=== PATIENT | female | born 1950 | race Caucasian/White ===

== ENCOUNTER 2021-05-15 08:35 | Outpatient (CLI) | payer MEDICARE, BC, SELFPAY ==
--- NOTE | 2021-05-15 08:47 | EST_ITS ---
Patient Info Name: Sheree Hernandez Age: 70 years : 1950 Gender: Female Ht: 65 in Wt: 165 lbs BSA: 1.87 m2 HR: 68 bpm BP: 148 / 72 mmHg Heart Rhythm: Sinus Arrhythmia Technical Quality: Fair Exam Date: 05/15/2021 9:06 AM Exam Location: [facility] Pulmonary Patient Status: Preadmit Admit Date: 05/15/2021 Staff Ordering Physician: Davonte Rodriguez MD [employer] Specialist: Irma Fuentes RDCS Attending Provider: DR. GARCIA Referring Physician: Michael GRANDE; Exam Type: CA stress echo Study Info Indications - chest pain Treadmill exercise stress echocardiogram is performed. Summary 1. 1. Abnormal Max exercise stress test for ischemic ST changes by ECG criteria during recovery phase. 2. 2. Good functional capacity, achieving 7 METs of workload. 3. 3. Baseline hypertension with hypertensive response to exercise. 4. 4. Appropriate HR response to exercise. 5. 5. Appropriate HR recovery at 1 minute post exercise. 6. 6. Negative stress echocardiogram for ischemia by wall motion analysis. 7. 7. Patient informed of the above results. Stress Echo Findings Left Ventricle Appropriate increase in LV endocardial thickening with systole. Appropriate augmentation of contractility with systole. No wall motion abnormality. Left Ventricle Normal LV systolic function, no wall motion abnormality. Protocol: Max Stress ECG Details Stage: REST Duration (min): 1 min : 15 sec Speed (mph): 0.0 Grade (%): 0 HR (bpm): 69 SBP (mmHg): 148 DBP (mmHg): 72 METS: --- Stage: REST Duration (min): 21 min : 56 sec Speed (mph): 0.0 Grade (%): 0 HR (bpm): 71 SBP (mmHg): 148 DBP (mmHg): 72 METS: --- Stage: STAGE 1 Duration (min): 1 min : 0 sec Speed (mph): 1.7 Grade (%): 10 HR (bpm): 86 SBP (mmHg): 148 DBP (mmHg): 72 METS: --- Stage: STAGE 1 Duration (min): 2 min : 0 sec Speed (mph): 1.7 Grade (%): 10 HR (bpm): 97 SBP (mmHg): 148 DBP (mmHg): 72 METS: --- Stage: STAGE 1 Duration (min): 3 min : 0 sec Speed (mph): 1.7 Grade (%): 10 HR (bpm): 104 SBP (mmHg): 141 DBP (mmHg): 58 METS: --- Stage: STAGE 2 Duration (min): 1 min : 0 sec Speed (mph): 2.5 Grade (%): 12 HR (bpm): 113 SBP (mmHg): 141 DBP (mmHg): 58 METS: --- Stage: STAGE 2 Duration (min): 2 min : 0 sec Speed (mph): 2.5 Grade (%): 12 HR (bpm): 125 SBP (mmHg): 187 DBP (mmHg): 64 METS: --- Stage: STAGE 2 Duration (min): 3 min : 0 sec Speed (mph): 2.5 Grade (%): 12 HR (bpm): 130 SBP (mmHg): 187 DBP (mmHg): 64 METS: --- Stage: STAGE 3 Duration (min): 0 min : 2 sec Speed (mph): 0.0 Grade (%): 0 HR (bpm): 130 SBP (mmHg): 187 DBP (mmHg): 64 METS: --- Stage: RECOVERY Duration (min): 0 min : 57 sec Speed (mph): 0.0 Grade (%): 0 HR (bpm): 111 SBP (mmHg): 183 DBP (mmHg): 58 METS: --- Stage:
== END 2021-05-15 08:36 | disposition home or self-care (01) ==
LOC: ANHCARD 11:26
PROVIDERS: PCP Family Medicine; Visit Provider Family Medicine
DX: R07.89 Other chest pain (principal)
CPT/HCPCS: 93351

== ENCOUNTER 2021-10-28 18:42 | Emergency (ER) | payer MEDICARE, BC, SELFPAY ==
[2021-10-28 19:31] VITALS: BP 121/83; PULSE 82; RESP 18; TEMP 36.2; O2SAT 99
--- NOTE | 2021-10-28 19:35 | ED.URI ---
HPI - URI/Sore Throat General Chief Complaint: Upper Respiratory Infection Stated Complaint: sorethroat Time Seen by Provider: 10/28/21 19:35 Source: patient and RN notes reviewed Mode of arrival: ambulatory Limitations: no limitations History of Present Illness HPI Narrative: 71-year-old female presents to the [facility] with complaints of a sore throat for 3 days. Has had increased fatigue as well. Denies fevers, chest pain, abdominal pain. Reports that she has had her grandson tested positive for strep. Fatigue that is gotten a little bit worse over the last 3 days since having her COVID-vaccine booster in June 2021 Related Data Allergies Allergy/AdvReac Type Severity Reaction Status Date / Time pseudoephedrine Allergy Mild Unknown Verified 09/15/21 12:05 albuterol Allergy Unknown adverse Verified 09/15/21 12:05 reaction celecoxib Allergy Unknown swelling Verified 09/15/21 12:05 of feet erythromycin base Allergy Unknown GI problems Verified 09/15/21 12:05 SHELLFISH Allergy Unknown Unknown Uncoded 09/15/21 12:05 SYMPATHOMIMETIC AGENTS Allergy Unknown Unknown Uncoded 09/15/21 12:05 Review of Systems Review of Systems: All systems reviewed & are unremarkable except as noted in HPI and below Constitutional: Constitutional: Reports no additional constitutional complaints, Denies chills and Denies fever(s) Eyes: Eyes: Reports no additional eye complaints ENT: Reports as per HPI and Reports sore throat Cardiovascular: Cardiovascular: Reports no additional cardiovascular complaints Respiratory: Respiratory: Reports no additional respiratory complaints Gastrointestinal: Gastrointestinal: Reports no additional gastrointestinal complaints Musculoskeletal: Musculoskeletal: Reports no additional musculoskeletal complaints Integumentary/Breasts: Skin/Breast: Reports system reviewed and no additional complaints, except as docu Neurologic: Reports system reviewed and no additional complaints, except as documented Psychiatric: Psychiatric: Reports no additional psychiatric complaints Allergic/Immunologic: Allergic/Immunologic: Reports no additional allergic/immunologic complaints [facility] Past Medical History Medical History Cataract (~2010) dBilateral Prediabetes Stroke (~2002) Surgical History Surgical History H/O lumbar discectomy (~2014) History of cervical discectomy (~1997) Family History Family History Father Family history of lymphoma Hypertension Family history of elevated blood lipids, Onset Age: 71 Family history of cardiovascular disease, Onset Age: 71 Mother Family history of malignant neoplasm of breast in first degree relative, Onset Age: 48 Hypertension, Onset Age: 51 Sibling Family history of malignant neoplasm of breast in first degree relative Diabetes mellitus Grandparent Cerebrovascular accident Other Family history of malignant neoplasm of breast Social History Social History Smoking status: Never smoker Alcohol intake: never Comments At the time of my signature, I reviewed and agree with the nursing past medical, surgical, social, and family history. There is no relevant family history pertinent to the patient complaint. Exam Const: General: healthy appearing, no acute distress and alert Nutritional Appearance: well nourished Orientation/consciousness: patient oriented x3 Limitations: no limitations HENMT: Head: normal to inspection Ears: external ears normal General nose exam: Normal external nose present Mouth: Yes Normal oral and palatal mucosa present Throat: posterior oropharynx normal, tonsils normal and uvula midline Eyes: General: appearance normal, both eyes and all related structures Pupils: Equal, round and reactiv
== END 2021-10-28 20:14 | disposition home or self-care (01) ==
PROVIDERS: Emergency Provider Nurse Practitioner; PCP Family Medicine
DX: J06.9 Acute upper respiratory infection, unspecified (principal); Z20.822 Contact with and (suspected) exposure to COVID-19; R73.03 Prediabetes; Z86.73 Personal history of transient ischemic attack (TIA), and cerebral infarction without residual deficits
CPT/HCPCS: 87081; 87426; 87880; 99213; C9803; G0463

== ENCOUNTER 2022-01-14 14:55 | Outpatient (NON) | payer MEDICARE, BC, SELFPAY ==
[2022-01-14 15:22] LABS: IFOB Positive Control Positive; Immunochemical Fecal Occult Bl Negative (N)
== END 2022-01-14 14:56 | disposition home or self-care (01) ==
LOC: ANHLAB 15:00
PROVIDERS: PCP Family Medicine; Visit Provider Family Medicine
DX: D50.9 Iron deficiency anemia, unspecified (principal)
CPT/HCPCS: 82274

== ENCOUNTER 2022-01-21 08:08 | Emergency (ER) | payer MEDICARE, BC, SELFPAY ==
[2022-01-21 08:16] VITALS: BP 133/78; PULSE 72; RESP 16; TEMP 36.6; O2SAT 98
--- NOTE | 2022-01-21 08:19 | ED.FEMALEGU ---
HPI - Female Genitourinary General Chief complaint: Urogenital-Female Stated complaint: UTI SYMPTOMS Time Seen by Provider: 01/21/22 08:15 Source: patient, RN notes reviewed and old records reviewed Mode of arrival: ambulatory Limitations: no limitations History of Present Illness HPI Narrative: 71-year-old female presents to the [facility] with 4 days of burning with urination urgency and frequency. Reports incontinence with coughing. Reports pressure suprapubic area. Denies any new back pain. Denies fevers. Related Data Home Medications Medication Instructions Recorded Confirmed ferrous sulfate 325 mg (65 mg 325 mg PO DAILY 01/12/22 01/21/22 iron) tablet Allergies Allergy/AdvReac Type Severity Reaction Status Date / Time pseudoephedrine Allergy Mild Unknown Verified 01/21/22 08:16 albuterol Allergy Unknown adverse Verified 01/21/22 08:16 reaction celecoxib Allergy Unknown swelling Verified 01/21/22 08:16 of feet erythromycin base Allergy Unknown GI problems Verified 01/19/22 14:41 SHELLFISH Allergy Unknown Unknown Uncoded 01/19/22 14:41 SYMPATHOMIMETIC AGENTS Allergy Unknown Unknown Uncoded 01/19/22 14:41 Review of Systems Review of Systems: All systems reviewed & are unremarkable except as noted in HPI and below Constitutional: Constitutional: Reports no additional constitutional complaints, Denies chills and Denies fatigue Eyes: Eyes: Reports no additional eye complaints ENT: Reports system reviewed and no additional complaints, except as documented Cardiovascular: Cardiovascular: Reports no additional cardiovascular complaints Respiratory: Respiratory: Reports no additional respiratory complaints Gastrointestinal: Gastrointestinal: Reports no additional gastrointestinal complaints, Denies abdominal pain, Denies diarrhea, Denies nausea and Denies vomiting Genitourinary: Genitourinary: Reports as per HPI, Reports hematuria, Reports nocturia, Reports dysuria, Denies flank pain and Denies vaginal discharge Musculoskeletal: Musculoskeletal: Reports no additional musculoskeletal complaints and Denies back pain Integumentary/Breasts: Skin/Breast: Reports system reviewed and no additional complaints, except as docu Neurologic: Reports system reviewed and no additional complaints, except as documented Psychiatric: Psychiatric: Reports no additional psychiatric complaints Endocrine: Endocrine: Denies fatigue Allergic/Immunologic: Allergic/Immunologic: Reports no additional allergic/immunologic complaints PMFSH Past Medical History Medical History Cataract (~2010) dBilateral Prediabetes Stroke (~2002) Surgical History Surgical History H/O lumbar discectomy (~2014) History of cervical discectomy (~1997) Family History Family History Father Family history of lymphoma Hypertension Family history of elevated blood lipids, Onset Age: 71 Family history of cardiovascular disease, Onset Age: 71 Mother Family history of malignant neoplasm of breast in first degree relative, Onset Age: 48 Hypertension, Onset Age: 51 Sibling Family history of malignant neoplasm of breast in first degree relative Diabetes mellitus Grandparent Cerebrovascular accident Other Family history of malignant neoplasm of breast Social History Social History Smoking status: Never smoker Substance use type: does not use Additional living arrangements comments: with sp Comments At the time of my signature, I reviewed and agree with the nursing past medical, surgical, social, and family history. There is no relevant family history pertinent to the patient complaint. Exam Const: General: healthy appearing, no acute distress and alert Nutritional Appearance: well bertin
== END 2022-01-21 08:52 | disposition home or self-care (01) ==
PROVIDERS: Emergency Provider Nurse Practitioner; PCP Family Medicine
DX: N39.0 Urinary tract infection, site not specified (principal); R73.03 Prediabetes; H26.9 Unspecified cataract; Z86.73 Personal history of transient ischemic attack (TIA), and cerebral infarction without residual deficits
CPT/HCPCS: 81003; 87077; 87086; 87186; 99213; G0463

== ENCOUNTER 2022-01-26 09:39 | Outpatient (CLI) | payer MEDICARE, BC, SELFPAY ==
--- NOTE | 2022-01-26 09:53 | ECHO_ITS ---
Patient Info Name: Sheree Hernandez Age: 71 years : 1950 Gender: Female Ht: 65 in Wt: 162 lbs BSA: 1.85 m2 HR: 65 bpm BP: 91 / 52 mmHg Technical Quality: Good Exam Date: 01/26/2022 10:27 AM Exam Location: [facility] Pul[facility] Patient Status: Outpatient Admit Date: 01/26/2022 Staff Ordering Physician: Patricia Sandoval MD Ems Instructor: Brendan Barr RDCS Attending Provider: Patricia Sandoval MD Referring Physician: Jaime ELY; Exam Type: CA echo doppler color flow Study Info Indications I10 - Essential (primary) hypertension Complete two-dimensional, color flow and Doppler transthoracic echocardiogram is performed. Summary 1. Complete two-dimensional, color flow and Doppler transthoracic echocardiogram is performed. 2. Left ventricular chamber dimension is normal. 3. Left ventricular systolic function is normal, estimated at 60-65%. 4. The left ventricular diastolic function is grade I diastolic dysfunction. 5. E/e' 8 is minimally elevated. 6. There is mild aortic valve sclerosis. 7. There is mild to moderate aortic valve regurgitation. Left Ventricle E/e' 8 is minimally elevated. Left ventricular chamber dimension is normal. Left ventricular systolic function is normal, estimated at 60-65%. The left ventricular diastolic function is grade I diastolic dysfunction. Right Ventricle Right ventricular systolic function is normal and with normal TAPSE 2.1 cm. Right ventricular chamber dimension is normal. Left Atria Left atrial chamber dimension is normal. Right Atria Right atrial chamber dimension is normal. Aortic Valve The aortic valve is trileaflet. There is mild aortic valve sclerosis. There is no aortic valve stenosis. There is mild to moderate aortic valve regurgitation. Pulmonic Valve There is no pulmonic regurgitation. Mitral Valve There is no mitral valve stenosis. There is no mitral valve regurgitation. Tricuspid Valve There is no tricuspid valve regurgitation. Pericardium/Pleural There is no pericardial effusion. Inferior Vena Cava Normal inferior vena cava with >50% collapse upon inspiration consistent with normal right atrial pressure, 5 mmHg. Aorta The aortic root size at the sinus of Valsalva is normal. Left Ventricular Outflow Tract Name Value Normal LVOT 2D LVOT Diameter 2.0 cm LVOT Doppler LVOT Peak Gradient 6 mmHg LVOT Mean Gradient 4 mmHg LVOT VTI 26 cm LVOT VTI/AV VTI Ratio 1.0 LVOT Stroke Volume 80 ml LVOT CO 5.3 l/min LVOT CI 2.9 l/min/m2 Mitral Valve Name Value Normal MV Doppler MV Decel Crockett 450 cm/s2 MV PHT
== END 2022-01-26 09:40 | disposition home or self-care (01) ==
LOC: ANHCARD 09:41
PROVIDERS: PCP Family Medicine; Visit Provider Family Medicine
DX: I10 Essential (primary) hypertension (principal); D64.9 Anemia, unspecified; I35.1 Nonrheumatic aortic (valve) insufficiency
CPT/HCPCS: 93306

== ENCOUNTER 2022-02-09 11:56 | Outpatient (CLI) | payer MEDICARE, BC, SELFPAY ==
--- NOTE | ~2022-02-09 | XR_ITS ---
EXAMINATION: XR chest 2V Exam Date/Time: 02/09/2022 12:06 CDT HISTORY: R05.9 - Cough, unspecified SINCE HAVING COVID 11/2021 Comparison: 06/22/2016. RESULT: Lines, tubes, and devices: None. Lungs and pleura: Clear. Cardiomediastinal silhouette: Stable. Other: No acute osseous or upper abdominal finding. IMPRESSION: No acute cardiopulmonary process. Reviewed, dictated and finalized at location K.
== END 2022-02-09 11:57 | disposition home or self-care (01) ==
PROVIDERS: PCP Family Medicine; Visit Provider Physician Assistant
DX: R05.9 Cough, unspecified (principal)
CPT/HCPCS: 71046

== ENCOUNTER 2022-03-11 00:45 | Day surgery (SDC) | payer MEDICARE, BC, SELFPAY ==
[2022-01-19 14:45] VITALS: BMI 26.7
[2022-03-11 11:20] VITALS: BP 169/65; PULSE 75; RESP 18; TEMP 36.4; O2SAT 96; BMI 27.1
--- NOTE | 2022-03-11 11:32 | PM.HPGS ---
History of Present Illness History of Present Illness Consent: Risks, benefits, and alternatives have been discussed and questions answered. Patient agrees to proceed with procedure. Chief complaint: dysphagia; SHAKIRA Narrative: Sheree Hernandez is a 71 year old female Presents for colonoscopy and EGD. Patient recently found to have anemia with iron deficient indices. She was placed on iron replacement has improved hemoglobin. She denies any obvious signs of bleeding. Her bowel movements are normal. She has no nose bleeds, no bruises or bleeding elsewhere. She denies abdominal pain. Patient does note that when swallowing food she occasionally chokes or will cough. An EGD is requested for this reason. Old records revealed that patient had a small AVM of the colon when previous colonoscopy was performed 2013. Patient presents today for both colonoscopy and EGD. Family history is noncontributory. Review of Systems Review of Systems: Review of systems noncontributory. [facility] Past Medical History Medical History Cataract (~2010) dBilateral Diabetes mellitus Essential (primary) hypertension Major depressive disorder, recurrent, moderate Mixed hyperlipidemia Nonrheumatic aortic (valve) insufficiency echo 10.4.22: mild aortic valve sclerosis, mild to moderate aortic valve regurgitation. Stroke (~2002) Surgical History Surgical History H/O lumbar discectomy (~2014) History of cervical discectomy (~1997) Family History Family History Father Family history of lymphoma Hypertension Family history of elevated blood lipids, Onset Age: 71 Family history of cardiovascular disease, Onset Age: 71 Mother Family history of malignant neoplasm of breast in first degree relative, Onset Age: 48 Hypertension, Onset Age: 51 Sibling Family history of malignant neoplasm of breast in first degree relative Diabetes mellitus Grandparent Cerebrovascular accident Other Family history of malignant neoplasm of breast Social History Social History Smoking status: Never smoker Alcohol intake: never Substance use: never Substance use type: does not use Lack of Transportation: No Lack of Food: Never True Current Housing: I Have Housing Concerned About Future Housing: No Difficulty Paying Gas/Electric Bills: No Difficulty Paying for Meds: No Currently Unemployed: No Education: Associate Degree Difficulty w/ Childcare or Family Care: No Living arrangements: other Additional living arrangements comments: Gender identity (if verbalized by the patient): Female Sexual Orientation (if Verbalized by the Patient): Straight or Heterosexual Agree to blood products: Yes Meds Home Medications and Allergies Home Medications Medication Instructions Recorded Confirmed Type cyclobenzaprine 10 mg tablet 10 mg PO .QHS PRN muscle spasm #60 01/15/20 03/11/22 Rx tabs hydrochlorothiazide 12.5 mg tablet 25 mg PO DAILY #180 tabs 11/10/21 03/11/22 Rx alprazolam 0.5 mg tablet (Xanax) 0.5 mg PO TID PRN anxiety #270 tabs 11/24/21 03/11/22 Rx sertraline 100 mg tablet 100 mg PO DAILY #90 tabs 12/14/21 03/11/22 Rx aspirin 81 mg tablet,delayed 81 mg PO DAILY #90 tabs 01/12/22 03/11/22 Rx release (Adult Aspirin Regimen) ferrous sulfate 325 mg (65 mg 325 mg PO DAILY 01/12/22 03/11/22 History iron) tablet atorvastatin 20 mg tablet 20 mg PO DAILY 03/02/22 03/11/22 History lisinopril 40 mg tablet 40 mg PO DAILY 03/02/22 03/11/22 History metformin 500 mg tablet,extended 500 mg PO DAILY 03/02/22 03/11/22 History release 24 hr metoprolol succinate 50 mg 50 mg PO DAILY 03/02/22 03/11/22 History tablet,extended release 24 hr montelukast 10 mg tablet 10 mg PO DAILY 03/02/22 03/11/22
[2022-03-11] MEDS: LACTATED RINGERS 1,000 ML 150 ML IV CONT (11:43)
--- NOTE | 2022-03-11 11:44 | WPDANESEPPF ---
Anes - Initial Pre Proc Eval Procedure: Operation Date: 03/11/22 12:30 Proposed Procedures p Esophagogastroduodenoscopy & Colonoscopy - Kamlesh Daniel MD Date/Time: 03/11/22 11:44 Surgeon: Kamlesh Daniel MD Pre Op Diagnosis: dysphagia; SHAKIRA Patient Data Age: 71 Gender: F Height: 1.65 m Weight: 73.8 kg Last Vital Signs Temp 36.4 C 03/11/22 11:20 Pulse 75 03/11/22 11:20 Resp 18 03/11/22 11:20 BP 169/65 H 03/11/22 11:20 Pulse Ox 96 03/11/22 11:20 O2 Del Method Room Air 03/11/22 11:20 Allergies Allergy/AdvReac Type Severity Reaction Status Date / Time pseudoephedrine Allergy Mild Unknown Verified 03/11/22 11:25 albuterol Allergy Unknown adverse Verified 03/11/22 11:25 reaction celecoxib Allergy Unknown swelling Verified 03/11/22 11:25 of feet erythromycin base Allergy Unknown GI problems Verified 03/11/22 11:25 SHELLFISH Allergy Unknown Unknown Uncoded 03/11/22 11:25 SYMPATHOMIMETIC AGENTS Allergy Unknown Unknown Uncoded 03/11/22 11:25 Home Medications Medication Instructions Recorded Confirmed Type cyclobenzaprine 10 mg tablet 10 mg PO .QHS PRN muscle spasm #60 01/15/20 03/11/22 Rx tabs hydrochlorothiazide 12.5 mg tablet 25 mg PO DAILY #180 tabs 11/10/21 03/11/22 Rx alprazolam 0.5 mg tablet (Xanax) 0.5 mg PO TID PRN anxiety #270 tabs 11/24/21 03/11/22 Rx sertraline 100 mg tablet 100 mg PO DAILY #90 tabs 12/14/21 03/11/22 Rx aspirin 81 mg tablet,delayed 81 mg PO DAILY #90 tabs 01/12/22 03/11/22 Rx release (Adult Aspirin Regimen) ferrous sulfate 325 mg (65 mg 325 mg PO DAILY 01/12/22 03/11/22 History iron) tablet atorvastatin 20 mg tablet 20 mg PO DAILY 03/02/22 03/11/22 History lisinopril 40 mg tablet 40 mg PO DAILY 03/02/22 03/11/22 History metformin 500 mg tablet,extended 500 mg PO DAILY 03/02/22 03/11/22 History release 24 hr metoprolol succinate 50 mg 50 mg PO DAILY 03/02/22 03/11/22 History tablet,extended release 24 hr montelukast 10 mg tablet 10 mg PO DAILY 03/02/22 03/11/22 History omeprazole 40 mg capsule,delayed 40 mg PO DAILY 03/02/22 03/11/22 History release fluticasone fur. 200 mcg-umeclid 1 inh inhalation Q24H #28 ea 03/09/22 03/11/22 Rx 62.5 mcg-vilant 25 mcg inhalat.powder (Trelegy Ellipta) nitrofurantoin 100 mg PO Q12H 7 days #14 caps 03/09/22 03/11/22 Rx monohydrate/macrocrystals 100 mg capsule (Macrobid) Patient hx anesthesia problems: none Family hx anesthesia problems: none Results Review: All pre-operative results and documents have been reviewed as part of the pre-operative evaluation. [facility] Past Medical History Medical History Cataract (~2010) dBilateral Diabetes mellitus Essential (primary) hypertension Major depressive disorder, recurrent, moderate Mixed hyperlipidemia Nonrheumatic aortic (valve) insufficiency echo 01.26.22: mild aortic valve sclerosis, mild to moderate aortic valve regurgitation. Stroke (~2002) Surgical History Surgical History H/O lumbar discectomy (~2014) History of cervical discectomy (~1997) Family History Family History Father Family history of lymphoma Hypertension Family history of elevated blood lipids, Onset Age: 71 Family history of cardiovascular disease, Onset Age: 71 Mother Family history of malignant neoplasm of breast in first degree relative, Onset Age: 48 Hypertension, Onset Age: 51 Sibling Family history of malignant neoplasm of breast in first degree relative Diabetes mellitus Grandparent Cerebrovascular accident Other Family history of malignant neoplasm of breast Social History Social History Smoking status: Never smoker Alcohol intake: never Substance use: never Substance use type: does not use Lack of Tra
[2022-03-11 11:48] LABS: Glucose Point of Care 124 mg/dl (65-105)
--- NOTE | 2022-03-11 12:48 | SUR.OPER ---
EGD START TIME 1249. EGD END TIME 1250. COLONOSCOPY START TIME 1256.
[2022-03-11 13:17] VITALS: BP 168/91; PULSE 73; RESP 18; O2SAT 94
[2022-03-11 13:27] VITALS: BP 149/75; PULSE 60; RESP 18; O2SAT 98
[2022-03-11 13:37] VITALS: BP 155/72; PULSE 62; RESP 24; O2SAT 99
== END 2022-03-11 13:51 | disposition home or self-care (01) ==
PROVIDERS: PCP Family Medicine; Visit Provider Internal Medicine Gastroenterology
PROC: 0DJ08ZZ Inspection of Upper Intestinal Tract, Via Natural or Artificial Opening Endoscopic (ICD-10-PCS; CPT 43235; principal; 2022-03-11 12:30)
DX: R13.10 Dysphagia, unspecified (principal); D50.9 Iron deficiency anemia, unspecified; I10 Essential (primary) hypertension; E11.9 Type 2 diabetes mellitus without complications; E78.2 Mixed hyperlipidemia; I35.1 Nonrheumatic aortic (valve) insufficiency; F33.1 Major depressive disorder, recurrent, moderate; Z86.73 Personal history of transient ischemic attack (TIA), and cerebral infarction without residual deficits; Z79.82 Long term (current) use of aspirin; Z79.84 Long term (current) use of oral hypoglycemic drugs; Z79.51 Long term (current) use of inhaled steroids
CPT/HCPCS: 43235; 82948; J2704; J7120

== ENCOUNTER 2022-04-08 08:09 | Outpatient (CLI) | payer MEDICARE, BC, SELFPAY ==
--- NOTE | ~2022-04-08 | XR_ITS ---
EXAMINATION: XR small bowel follow through DATE: 04/08/2022 09:35 INDICATION: Anemia TECHNIQUE: Resource Protection Specialist radiograph(s) of the abdomen was/were obtained. Oral contrast was administered, and sequential radiographs of the abdomen were obtained until oral contrast was noted to be in the proxi mal colon. Spot fluoroscopic images of the small bowel were obtained. Fluoroscopy exposure time was 1 .4 minutes. The DAP for this procedure was 39.963 Gycm2. COMPARISON: CT, 01/26/2013 FINDINGS: Resource Protection Specialist image demonstrates a moderate volume of colonic stool. There is no free intraperitone al gas or evidence of bowel obstruction. Transit time from the stomach to proximal colon was approxim ately 30 minutes. There is normal caliber and mucosal fold pattern throughout the small bowel. Termi nal ileum is normal. No tethering or abnormal mass effect observed upon the small bowel with real-ti me fluoroscopy. IMPRESSION: 1. No radiographic correlate for anemia. Reviewed, dictated and finalized at location A. [facility]
== END 2022-04-08 08:10 | disposition home or self-care (01) ==
LOC: ANHIMG 08:11
PROVIDERS: PCP Family Medicine; Visit Provider Internal Medicine Gastroenterology
DX: D50.9 Iron deficiency anemia, unspecified (principal)
CPT/HCPCS: 74250

== ENCOUNTER 2022-08-31 09:03 | Outpatient (CLI) | payer MEDICARE, BC, SELFPAY ==
--- NOTE | 2022-09-21 11:01 | WPDSLEEPSTUD ---
Sleep Study Date of Study: 08/31/22 Ordering Provider: Franny Pack MD Interpreting Physician: Gwen Edouard DO Sleep Study Type: Polysomnogram Height: 1.65 m Weight: 71.214 kg Body Mass Index: 26.1 Neck Circumference (inches): 13.5 [place]: 10 Reason for Sleep Study Snoring, insomnia Sleep History The patient is a 72-year-old female with prediabetes, asthma, hyperlipidemia, hypertension, GERD, depression, fibromyalgia, seasonal allergies, aortic regurgitation, irritable bowel syndrome, anxiety and history of CVA x 2 that had a sleep study ordered by her shed workers supervisor for evaluation of sleep apnea. the patient is a retired registered nurse. The patient denies awakening from sleep short of breath. She frequently awakens at night with heartburn, belching or cough. She occasionally snores and is frequently loud enough that others complain. She frequently has trouble sleeping when she has a cold. He denies waking up gasping for air throughout the night. She rarely has breathing problems at night observed by herself or others. She rarely sweats excessively at night. She denies having heart palpitations or irregular heartbeats during the night. She frequently falls asleep during the day but never while driving. She denies sleep paralysis, cataplexy and hypnagogic / hypnopompic hallucinations. She denies having trouble at school or work due to sleepiness. She denies feeling afraid of going to sleep. He frequently has nightmares and frequently remembers her dreams. She rarely has thoughts racing through her mind. She occasionally feels sad or depressed. She rarely has anxiety. She frequently has muscular tension. She occasionally notices parts of her body jerk. She rarely kicks during the night. She frequently has crawling and aching feelings in her legs and frequently has leg pain during the night. She occasionally grinds her teeth during sleep but never awakens with morning jaw pain. She is frequently bothered by pain during the day and frequently awakened by pain during the night. She frequently wakes up feeling stiff in the morning. She frequently wakes up with sore or achy muscles. She frequently wakes up with pain in the neck, spine or other joints. She goes to bed at 11:00 p.m. on both weekdays and weekends. It takes her 1 hour to fall asleep. She wakes up 2-3 times throughout the night for unknown reasons. When she awakens, she will get out of bed and read or watch television. It can take her 1-2 hours to fall back asleep. She wakes up at 8:00 a.m. on weekdays and at 7:00 a.m. on the weekends. She will stay in bed for 8-9 hours per night. She will stay in bed for 5-10 minutes after waking up in the morning. She currently lives with her . She does not consume any caffeinated beverages within 2 hours of bedtime. She does not engage in physical exercise before bedtime. She will read and watch television before falling asleep. She will take naps in the afternoon or the evening but they are not refreshing. She consumes 3 caffeinated beverages per day. She denies tobacco, alcohol and recreational drug use. [facility] Past Medical History Medical History Cataract (~2010) dBilateral Diabetes mellitus Essential (primary) hypertension Major depressive disorder, recurrent, moderate Mixed hyperlipidemia Nonrheumatic aortic (valve) insufficiency echo 10.4.22: mild aortic valve sclerosis, mild to moderate aortic valve regurgitation. Stroke (~2002) Surgical History Surgical History H/O lumbar discectomy (~2014) History of cervical discectomy (~1997) Family History Family History Father Family history of lymphoma Hypertension Family history of elevated blood lipids, Onset Age: 72 Family history of cardiovascular disease, O
[2022-09-21 11:28] VITALS: BMI 26.1
== END 2022-09-01 06:45 | disposition home or self-care (01) ==
PROVIDERS: PCP Family Medicine; Visit Provider Internal Medicine
DX: G47.10 Hypersomnia, unspecified (principal); G47.61 Periodic limb movement disorder; R53.83 Other fatigue; I10 Essential (primary) hypertension; M79.7 Fibromyalgia; E78.5 Hyperlipidemia, unspecified; I35.1 Nonrheumatic aortic (valve) insufficiency; E11.8 Type 2 diabetes mellitus with unspecified complications; K21.9 Gastro-esophageal reflux disease without esophagitis; F32.A Depression, unspecified; F41.9 Anxiety disorder, unspecified; K58.9 Irritable bowel syndrome, unspecified
CPT/HCPCS: 95810

== ENCOUNTER 2023-07-05 15:27 | Outpatient (CLI) | payer MEDICARE, BC, SELFPAY ==
[2023-07-09 06:18] LABS: Immunoglobulin A 180 mg/dL (70-320); TTG IGA AB <1.0 U/mL (<15.0)
== END 2023-07-05 15:28 | disposition home or self-care (01) ==
PROVIDERS: PCP Family Medicine; Visit Provider Family Medicine
DX: R19.4 Change in bowel habit (principal)
CPT/HCPCS: 36415; 82784; 86364

== ENCOUNTER 2024-03-06 10:25 | Outpatient (CLI) | payer MEDICARE, BC, SELFPAY ==
--- NOTE | ~2024-03-06 | XR_ITS ---
XR hip RT min 2V Ordering provider: Lazaro Acevedo APRN History: . M25.551 - Pain in right hip . Comparison: None. FINDINGS: BONES: No acute fracture or dislocation. HIP JOINT SPACES: Normal. PUBIC SYMPHYSIS: Normal. SOFT TISSUES: Normal. IMPRESSION: No acute osseous abnormality pelvis and right hip. Reviewed, dictated and finalized at location A. ER STITCHER
== END 2024-03-06 10:26 | disposition home or self-care (01) ==
LOC: ANHIMG 10:26
PROVIDERS: PCP Family Medicine; Visit Provider Student in an Organized Health Care Education/Training Program
DX: M25.551 Pain in right hip (principal)
CPT/HCPCS: 73502

== ENCOUNTER 2024-03-19 11:20 | Emergency (ER) | payer MEDICARE, BC, SELFPAY ==
[2024-03-19 11:32] VITALS: BP 149/61; PULSE 73; RESP 16; TEMP 35.9; O2SAT 98
--- NOTE | 2024-03-19 11:43 | ED_ITS ---
HPI - Dizziness General Chief Complaint: Dizziness Stated Complaint: dizzy Time Seen by Provider: 03/19/24 11:43 Source: patient, RN notes reviewed and old records reviewed Mode of arrival: ambulatory Limitations: no limitations History of Present Illness HPI Narrative: Patient with history of vertigo presents with complaints of dizziness. She reports symptoms began 5 days ago. She reports that she has had some associated nausea intermittently when vertigo symptoms are at their worst. She has been taking meclizine intermittently for her symptoms with good results. She reports that her symptoms are typical of when she has vertigo. Says that she feels better when she takes meclizine, but has not taken any for 2 days. She denies any injury or trauma. She is observed ambulating with a steady gait. She voices no other concerns or complaints at this time Related Data Home Medications Medication Instructions Recorded Confirmed acetaminophen 650 mg 650 mg PO Q12H 03/05/24 03/19/24 tablet,extended release (Tylenol Arthritis Pain) meclizine 25 mg tablet 25 mg PO BID PRN vertigo 03/19/24 03/19/24 Allergies Allergy/AdvReac Type Severity Reaction Status Date / Time pseudoephedrine Allergy Mild Unknown Verified 03/19/24 11:32 albuterol Allergy Unknown adverse Verified 03/19/24 11:32 reaction celecoxib AdvReac Intermediate swelling Verified 03/19/24 11:32 of feet erythromycin base AdvReac Intermediate GI problems Verified 03/19/24 11:32 SHELLFISH Allergy Unknown Unknown Uncoded 03/19/24 11:32 SYMPATHOMIMETIC AGENTS Allergy Unknown Unknown Uncoded 03/19/24 11:32 Review of Systems Review of Systems: All systems reviewed & are unremarkable except as noted in HPI and below Constitutional: Constitutional: Reports as per HPI and Reports no additional constitutional complaints ENT: Reports system reviewed and no additional complaints, except as documented and Reports as per HPI Cardiovascular: Cardiovascular: Reports no additional cardiovascular complaints Respiratory: Respiratory: Reports no additional respiratory complaints Gastrointestinal: Gastrointestinal: Reports no additional gastrointestinal complaints and Reports nausea Neurologic: Reports vertigo PMFSH Past Medical History Medical History Cataract (~2010) dBilateral Diabetes mellitus Essential (primary) hypertension Major depressive disorder, recurrent, moderate Mixed hyperlipidemia Nonrheumatic aortic (valve) insufficiency echo 10.4.22: mild aortic valve sclerosis, mild to moderate aortic valve regurgitation. Stroke (~2002) Surgical History Surgical History H/O lumbar discectomy (~2014) History of cervical discectomy (~1997) Family History Family History Father Family history of lymphoma Hypertension Family history of elevated blood lipids, Onset Age: 71 Family history of cardiovascular disease, Onset Age: 71 Mother Family history of malignant neoplasm of breast in first degree relativ e, Onset Age: 48 Hypertension, Onset Age: 51 Sibling Family history of malignant neoplasm of breast in first degree relative Diabetes mellitus Grandparent Cerebrovascular accident Other Family history of malignant neoplasm of breast Social History Social History Smoking status: Never smoker Alcohol intake: never Substance use: never Substance use type: does not use Lack of Transportation: No Lack of Food: Never True Current Housing: I Have Housing Concerned About Future Housing: No Difficulty Paying Gas/Electric Bills: No Difficulty Paying for Meds: No Currently Unemployed: No Education: Decline to Answer Difficulty w/ Childcare or Family Care: No Living arrangements: with family Additional living arrangements comments: Occupation/Education: retired Gender identity (if verbalized by the patient): Female Sexual Orientation (if Verbalized by the Patient): Straight or Heterosexual Agree to blood products: Yes Comments At the time of my signature, I reviewed and agree with the nursing past medical, surgical, social, and family history. There is no relevant family history pertinent to the patient complaint. Exam Const: General: cooperative, no acute distress, alert and awake Orientation/consciousness: oriented to person, oriented to place and oriented to time HENMT: Head: normal to inspection Ears: TM's normal bilaterally Mouth: Yes moist mucous membranes Resp: Effort & Inspection: normal respiratory effort and able to speak in complete sentences Auscultation: clear to auscultation bilaterally, no crackles, no rales, no rhonchi and no wheezes Cardio: Palpation: normal PMI Rate: regular rate Rhythm: regular rhythm Heart sounds: S1 normal heart sound present and S2 normal heart sound present Neuro: General: oriented to person, oriented to place and oriented to time Cranial nerves: Yes CN's II-XII intact bilaterally and Yes Equal, round and reactive pupils present Speech: normal speech Gait exam (Neuro): Normal gait present Motor exam (neuro): 5/5 motor strength present throughout and Motor abnormalities not present Psych: Appearance: grossly normal Thought process: Normal thought process present Insight: Good insight present (Psych) Judgement: Good judgement present (Psych) Course Course Level of Care: Express Care Visit Vital Signs Vital signs: Vital Signs Temperature 96.7 F L 03/19/24 11:32 Pulse Rate 73 03/19/24 11:32 Respiratory Rate 16 03/19/24 11:32 Blood Pressure 149/61 H 03/19/24 11:32 Pulse Oximetry 98 03/19/24 11:32 Oxygen Delivery Room Air 03/19/24 11:32 Temperature 96.7 F L 03/19/24 11:32 Pulse Rate 73 03/19/24 11:32 Respiratory Rate 16 03/19/24 11:32 Blood Pressure 149/61 H 03/19/24 11:32 Pulse Oximetry 98 03/19/24 11:32 Oxygen Delivery Room Air 03/19/24 11:32 Reviewed MDM - Dizziness MDM Narrative Medical decision making narrative: patient with history of vertigo, has not been taking meclizine as prescribed to manage her symptoms. She is observed ambulating with steady gait. No neuro deficits. Emergency department precautions discussed patient. Discharge instructions reviewed with patient, as well as provided in writing per nursing staff. The instructions also include specific and strict return/GO TO THE ER as well as f/u information. All questions have been answered, and the patient deny any further questions with discharge and discharge plan. Some parts of this dictation were generated by voice recognition software and may contain typographical and/or grammatical inaccuracies. Differential Diagnosis Differential diagnosis: Likely benign paroxysmal positional vertigo and orthostatic hypotension Medical Records Attestation: I reviewed the patient's medical records. Discharge Plan Discharge Clinical Impression: Vertigo Patient Disposition: Home, Self-Care Condition: Stable Instructions: Antibiotic Form, Benign Paroxysmal Positional Vertigo (ED) Additional Instructions: take medications as prescribed. Follow with primary care provider. Emergency department for new or worsening symptoms Patient Language: Ug[place] Prescriptions: New meclizine 50 mg tablet 50 mg PO TID PRN (Reason: dizziness) Qty: 14 0RF No Action meclizine 25 mg Tablet 25 mg PO BID PRN (Reason: vertigo ) aspirin [Adult Aspirin Regimen] 81 mg tablet,delayed release (DR/EC) 81 mg PO DAILY Qty: 90 1RF cyclobenzaprine 10 mg tablet 10 mg PO .QHS PRN (Reason: muscle spasm) Qty: 60 3RF Trelegy Ellipta 200-62.5-25 mcg blister with device 1 inh inhalation DAILY Qty: 60 4RF acetaminophen [Tylenol Arthritis Pain] 650 mg tablet extended release 650 mg PO Q12H montelukast 10 mg tablet 10 mg PO DAILY Qty: 90 3RF Rx Instructions: TAKE 1 TABLET DAILY alprazolam [Xanax] 0.5 mg tablet 0.5 mg PO TID PRN (Reason: anxiety) Qty: 90 1RF sertraline 100 mg tablet 100 mg PO DAILY Qty: 90 1RF hydrochlorothiazide 12.5 mg tablet 25 mg PO DAILY Qty: 180 1RF lisinopril 40 mg tablet 40 mg PO DAILY Qty: 90 1RF Rx Instructions: TAKE 1 TABLET BY MOUTH DAILY atorvastatin 20 mg tablet 20 mg PO DAILY Qty: 90 1RF Rx Instructions: TAKE 1 TABLET BY MOUTH DAILY metformin 500 mg tablet extended release 24 hr 500 mg PO DAILY Qty: 90 1RF Rx Instructions: TAKE 1 TABLET BY MOUTH DAILY metoprolol succinate 50 mg tablet extended release 24 hr 50 mg PO DAILY Qty: 90 1RF Rx Instructions: TAKE 1 TABLET BY MOUTH DAILY omeprazole 40 mg capsule,delayed release(DR/EC) 40 mg PO DAILY Qty: 90 3RF Rx Instructions: TAKE 1 CAPSULE DAILY Follow-up/Referrals: Patricia Sandoval MD [Primary Care Provider] - 1 Day Time of Disposition: 11:58
== END 2024-03-19 12:00 | disposition home or self-care (01) ==
PROVIDERS: Emergency Provider Nurse Practitioner Family; PCP Family Medicine
DX: R42 Dizziness and giddiness (principal); E11.9 Type 2 diabetes mellitus without complications; I10 Essential (primary) hypertension; E78.2 Mixed hyperlipidemia; I35.2 Nonrheumatic aortic (valve) stenosis with insufficiency; Z86.73 Personal history of transient ischemic attack (TIA), and cerebral infarction without residual deficits
CPT/HCPCS: 99213; G0463

== ENCOUNTER 2024-10-13 10:14 | Outpatient (CLI) | payer MEDICARE, BC, SELFPAY ==
--- NOTE | ~2024-10-13 | US_ITS ---
US soft tissue chest Ordering provider: Lazaro Acevedo APRN History: . R22.2 - Localized swelling, mass and lump, trunk . Comparison: None. FINDINGS/impression: Isoechoic area is seen under the left which measures 2.7 x 0.9 x 4.7 cm which is most likely normal t issue. Lipoma cannot be excluded. Follow-up advised. Reviewed, dictated and finalized at location A.
== END 2024-10-13 10:15 | disposition home or self-care (01) ==
LOC: MICIMG 10:15
PROVIDERS: PCP Family Medicine; Visit Provider Student in an Organized Health Care Education/Training Program
DX: R22.2 Localized swelling, mass and lump, trunk (principal)
CPT/HCPCS: 76604

== ENCOUNTER 2025-01-22 09:52 | Outpatient (CLI) | payer MEDICARE, BC, SELFPAY ==
--- OUTSIDE RECORDS SUMMARY | 2025-01-22 10:38 | XMS_ITS | Clinical Summary ---
Author Organization [facility] Address [address] [place] [address] Care Team Providers Care Transformer Inspector Name Role Phone Patricia Sandoval MD Primary Care Provider + Allergies Active Allergy Reactions Criticality Noted Date Comments Albuterol Other (See comments) Low Passed out and got weak all over Shellfish Containing Products Shortness of breath High Choking Medications ALPRAZolam (XANAX) 0.5 mg tabletIndicatio ns:Fibromyalgia Take 1-2 tablets (0.5-1 mg total) by mouth nightly as needed 5 10/11/2017 Active montelukast (SINGULAIR) 10 mg tablet Take 1 tablet (10 mg total) by mouth every morning 08/30/2017 Active omeprazole (PriLOSEC) 40 mg capsule Take 1 capsule (40 mg total) by mouth every morning 10/14/2017 Active lisinopril (PRINIVIL,ZESTR IL) 40 mg tablet Take 1 tablet (40 mg total) by mouth every morning Active cyclobenzaprine (FLEXERIL) 10 mg tablet Take 1 tablet (10 mg total) by mouth 3 (three) times a day as needed for muscle spasms Active metFORMIN XR (GLUCOPHAGE XR) 500 mg 24 hr tablet Take 1 tablet (500 mg total) by mouth daily with dinner Active hydroCHLOROthia zide (HYDRODIURIL) 12.5 mg tablet Take 2 tablets (25 mg total) by mouth every morning Active atorvastatin (LIPITOR) 20 mg tablet 06/02/2019 Active metoprolol XL (TOPROL-XL) 50 mg extended release tablet Take 1 tablet (50 mg total) by mouth daily 04/27/2020 Active sertraline (ZOLOFT) 100 mg tablet Take 1 tablet (100 mg total) by mouth daily 06/15/2021 Active folic acid (FOLVITE) 400 mcg tablet Take 1 tablet (400 mcg total) by mouth daily Active magnesium oxide (MAG-OX) 250 mg (150.8 mg elemental) tabletIndicatio ns:hypomagnesem ia 1 tablet (250 mg total) daily Active cholecalciferol (VITAMIN D-3) 26362 unit capsule Take 1 capsule (10,000 Units total) by mouth daily Active aspirin 81 mg enteric coated tablet Take 1 tablet (81 mg total) by mouth daily Active Active Problems Problem Noted Date Diagnosed Date Nonrheumatic aortic (valve) insufficiency 2021 Other fatigue 02/12/2022 Primary hypertension 02/12/2022 Hyperlipidemia 02/12/2022 Family history of breast cancer 06/23/2021 Mastodynia 06/23/2021 At high risk for breast cancer 12/26/2017 Encounters Date Type Department Care Team Description 01/03/2025 12:27 PM CDT - 01/03/2025 11:59 PM CDT Hospital Encounter [facility] [address] [place] [id number] At high risk for breast cancer; Family history of breast cancer Discharge Disposition: Discharge to home or self care 01/03/2025 Results Follow-Up [facility] Medicine Surgery [address] [facility] [address] [place] [id number] Shania Palacios NP MRI Breast Bilateral W WO Contrast 12/31/2024 Orders Only [facility] ([facility]) [address] [place] [id number] Marlyn Clayton MD 12/31/2024 Telephone [facility] [address] [place] [address] Miri Gusman RN from Last 3 Months Immunizations Immunization Administration Dates Next Due Influenza, Trivalent, Adjuvanted, Intramuscular 02/17/2019 Influenza, Trivalent, High D ose, Split, Preservative Free, Intramuscular 01/19/2018 Surgical History Surgery Date Site/Laterality Comments BREAST BIOPSY 11/04/2017 Left 1972 was first breast biopsy at [facility] with Dr. Oliva LUMBAR DISCECTOMY 1997, 2012 Lumbar sacral discectomy twice CERVICAL DISCECTOMY 04/25/2002 - 04/24/2003 SECTION 04/25/1984 - 04/24/1985 BREAST BIOPSY multiple CATARACT EXTRACTION CATARACT EXTRACTION SPINE SURGERY Medical History Medical History Date Comments GERD (gastroesophageal reflux disease) Depression Anxiety Seasonal allergies HTN (hypertension) Diabetes PONV (postoperative nausea and vomiting) Stroke (HCC) Fibromyalgia Meniere disease Hearing loss IBS (irritable bowel syndrome) Arthritis Asthma Family History Medical History Relation Name Comments Arthritis Father Naun Fears Hypertension Father Naun Fears Stroke Maternal Grandmother Angely Ratliff Breast cancer Mother Erin Fears Adenocarcinom a of breast - (Added by TW Conv) Cancer Mother Erin Fears Asthma Paternal Grandmother Meredith Fears Breast cancer Sister metastatic damien ast cancer. identical twin of patient PONV Sister Relation Name Status Comments Father Naun Fears Maternal Grandmother Angely Ratliff Mother Erin Fears Paternal Grandmother Meredith Fears Sister Social History Tobacco Use Types Packs/Day Years Used Date Smoking Tobacco: Never Smokeless Tobacco: Never Tobacco Cessation:Counseling Given: Not Answered Alcohol Use Standard Drinks/Week Comments No 0 (1 standard drink = 0.6 oz pur e alcohol) Comments No Sex and Gender Information Value Date Recorded Sex Assigned at Not on file Legal Sex Female 6:00 PM CUTTER OPERATOR ASBESTOS SHINGLE Gender Identity Not on file Sexual Orientation Not on file Obstetrics History Last Filed Vital Signs Vital Sign Reading Time Taken Comments Blood Pressure 142/64 04/04/2024 1:20 PM CUTTER OPERATOR ASBESTOS SHINGLE Pulse 70 04/04/2024 1:20 PM CUTTER OPERATOR ASBESTOS SHINGLE Temperature 36.6 C (97.9 F) 12/05/2017 12:01 PM CDT Respiratory Rate 12 12/05/2017 8:37 AM CDT Oxygen Saturation 97% 04/04/2024 1:20 PM CUTTER OPERATOR ASBESTOS SHINGLE Inhaled Oxygen Concentration - - Weight 69.4 kg (153 lb) 01/03/2025 12:49 PM CDT Height 165.1 cm (5' 5) 01/03/2025 12:49 PM CDT Body Mass Index 25.46 01/03/2025 12:49 PM CDT Plan of Treatment Health Maintenance Due Date Last Done Comments Colon Cancer Screening-Colonoscopy 1950 Depression Screening 1950 Fall Risk Assessment 1950 Hepatitis C Screening 1950 Osteoporosis Screening-Bone Density Scan 1950 Hepatitis B Screening 08/05/1969 Zoster Vaccine (2 of 3) 01/18/2015 11/23/2014 Well Visit 65+ 08/05/2016 Pneumococcal vaccine 65+ (3 of 3 - PCV20 or PCV21) 08/18/2020 08/19/2015, 02/09/2006 Influenza Vaccine (#1) 2024 9, 01/19/2018, 01/07/2017, Additional history exists Breast Cancer Screening-Mammogram 06/27/2025 06/27/2024, 06/28/2023, 06/24/2022, Additional history exists DTaP/Tdap/Td Vaccine (4 - Td or Tdap) 05/30/2026 05/30/2016, 04/21/2016, 01/12/2005 Medical Devices Implanted Type Area Appliquer Device Identifier Shelf Expiration Date Model / Serial / Lot Lt Breast Biopsy Marker-01/04/2018 Implanted:2017 (Quantity not on file) Breast Procedures Procedure Name Priority Date/Time Associated Diagnosis Comments MRI BREAST BILATERAL W WO CONTRAST Schedule Routine, Read Routine (OP Routine) 01/03/2025 1:21 PM CDT At high risk for breast cancer Family history of breast cancer SCREENING MAMMOGRAM BILATERAL W GREGORY Schedule Routine, Read Routine (OP Routine) 06/27/2024 11:55 AM CUTTER OPERATOR ASBESTOS SHINGLE At high risk for breast cancer Family history of breast cancer Encounter for screening mammogram for malignant neoplasm of breast from Last 3 Months or Most Recently Relevant to Health Maintenance Results * MRI Breast Bilateral W WO Contrast (01/03/2025 1:21 PM CDT) Anatomical Region Laterality Modality Breast Bilateral Magnetic Resonan ce 01/03/2025 2:05 PM CDT Impressions 01/03/2025 2:05 PM CDT No suspicious MRI findings in EITHER breast. OVERALL FINAL ASSESSMENT: BI-RADS Category 1: Negative. RECOMMENDATION: Annual screening mammography and breast MRI are recommended. Electronically signed by: Marlyn Clayton M.D. Narrative 01/03/2025 2:05 PM CDT EXAMINATION: 1. MRI EXAMINATION OF THE BREASTS WITH AND WITHOUT CONTRAST 2. 3D POST PROCESSING ON A DEDICATED 3D WORKSTATION HISTORY: High-risk Screening. 74-year-old woman with elevated lifetime risk of breast cancer of 20-25% due to family history. Prior left breast atypical lobular hyperplasia status post excisional biopsy in 2018. TECHNIQUE: MRI examination of the breasts per breast tumor protocol with and without gadolinium contrast. A dedicated breast imaging coil was used. The images were transferred to a breast CAD system for 3D post processing and contrast kinetics analysis. CONTRAST: Gadoterate meglumine, 14 ml COMPARISON: Prior breast MRIs from 01/03/2024, 12/31/2022, and 01/01/2022. Mammograms from 06/27/2024, 06/28/2023, and 06/23/2021. BREAST COMPOSITION: Scattered fibroglandular tissue BACKGROUND PARENCHYMAL ENHANCEMENT: Minimal FINDINGS: No suspicious mass or non-mass enhancement in EITHER breast No abnormally enlarged lymph nodes are identified in the visualized portions of either axilla. Nonenhancing T2 hyperintense skin-based lesion again noted over the LEFT axilla, similar to prior. There is a 1.1 cm T2 hyperintense lesion in the liver which is unchanged from 01/03/2024 and decreased from older prior MRIs, likely a cyst. Shania Palacios NP IMG MRI PROCEDURES Final R esult * Screening Mammogram Bilateral W Gregory (06/27/2024 11:55 AM CUTTER OPERATOR ASBESTOS SHINGLE) Anatomical Region Laterality Modality Breast Bilateral Mammography Narrative 06/28/2024 2:45 PM CUTTER OPERATOR ASBESTOS SHINGLE Mammogram Technique: Bilateral Digital Breast Tomosynthesis, Bilateral C-view 2D Screening mammogram. Views obtained: bilateral craniocaudal and bilateral mediolateral oblique. Computer Aided Detection was performed. Mammogram Findings: The present examination has been compared to prior imaging studies performed at [facility] on 04/06/2016, 05/03/2017, 06/09/2018, 06/12/2019, 06/20/2020, 06/23/2021, 06/24/2022 and 06/28/2023. There are scattered areas of fibroglandular density. Finding remains unchanged from the prior study. There is a benign mass in both breasts. There is no suspicious abnormality in either breast. Impression: There is no mammographic evidence of malignancy. Annual screening mammography is recommended. OVERALL FINAL ASSESSMENT: BI-RADS CATEGORY 2: Benign. Procedure Note Marlyn Clayton MD - 06/28/2024 Mammogram Technique: Bilateral Digital Breast Tomosynthesis, Bilateral C-view 2D Screening mammogram. Views obtained: bilateral craniocaudal and bilateral mediolateral oblique. Computer Aided Detection was performed. Mammogram Findings: The present examination has been compared to prior imaging studies performed at [facility] on 04/06/2016, 05/03/2017,06/09/2018, 06/12/2019, 06/20/2020, 06/23/2021, 06/24/2022 and 06/28/2023. There are scattered areas of fibroglandular density. Finding remains unchanged from the prior study. There is a benign mass in both breasts. There is no suspicious abnormality in either breast. Impression: There is no mammographic evidence of malignancy. Annual screening mammography is recommended. OVERALL FINAL ASSESSMENT: BI-RADS CATEGORY 2: Benign. Shania Palacios NP IMG MAMMO PROCEDURES Final Result from Last 3 Months or Most Recently Relevant to Health [place] [address] [address] MEDICARE [facility] FEDERAL MEDICARE MEDICARE [facility] [employer] Care Teams Transformer Inspector Relationship Specialty Start Date End Date Patricia Sandoval MD PCP - General Family Medicine 02/12/22
--- OUTSIDE RECORDS SUMMARY | 2025-01-22 10:38 | XMS_ITS | Encounter Summary ---
Author Organization [facility] Address 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
--- OUTSIDE RECORDS SUMMARY | 2025-01-22 10:38 | XMS_ITS | Encounter Summary ---
Author Organization [facility] Address [address] [place] [address] Care Team Providers Care Transplant Immunologist Name Role Phone Patricia Sandoval MD Primary Care Provider + Encounter Details Date Type Department Care Team (Late st Contact Info) Description 02/02/2024 Orders Only [facility] Health Information Management [address] [place] [id number] Scanning, Provider Social History Tobacco Use Types Packs/Day Years Used Date Smoking Tobacco: Never Smokeless Tobacco: Never Alcohol Use Standard Drinks/Week Comments No 0 (1 standard drink = 0.6 oz pur e alcohol) Comments No Sex and Gender Information Value Date Recorded Sex Assigned at Not on file 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 Gender Identity Not on file Sexual Orientation Not on file documented as of this encounter Plan of Treatment Not on file documented as of this encounter Procedures Procedure Name Priority Date/Time Associated Diagnosis Comments SCAN - LABS 02/02/2024 documented in this encounter Results * SCAN - LABS (02/02/2024) us Provider Scanning Final Result documented in this encounter Visit Diagnoses Not on filedocumented in this encounter Care Teams Transplant Immunologist Relationship Specialty Start Date End Date Patricia Sandoval MD PCP - General Family Medicine 02/12/22 documented as of this encounter
--- OUTSIDE RECORDS SUMMARY | 2025-01-22 10:38 | XMS_ITS | Encounter Summary ---
Author Organization [facility] Address [address] [facility] [address] [place] [address] Phone Care Team Providers Care Quitline Counselor Name Role Phone Patricia Sandoval MD Primary Care Provider + Encounter Details Date Type Department Care Team (Late st Contact Info) Description 01/03/2025 Results Follow-Up [facility] Medicine Surgery [address] [facility] [address] [place] [address] Shania Palacios, HARRISON [address] [facility] [id number] [place] [address] MRI Breast Bilateral W WO Contrast Social History Tobacco Use Types Packs/Day Years Used Date Smoking Tobacco: Never Smokeless Tobacco: Never Alcohol Use Standard Drinks/Week Comments No 0 (1 standard drink = 0.6 oz pur e alcohol) Comments No Sex and Gender Information Value Date Recorded Sex Assigned at Not on file 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
--- OUTSIDE RECORDS SUMMARY | 2025-01-22 10:38 | XMS_ITS | Clinical Summary ---
Author Organization [facility] Address [address] 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
== END 2025-01-22 09:53 | disposition home or self-care (01) ==
LOC: ANHAUDIO 09:52
PROVIDERS: PCP Family Medicine; Visit Provider Student in an Organized Health Care Education/Training Program
DX: H90.6 Mixed conductive and sensorineural hearing loss, bilateral (principal); H93.12 Tinnitus, left ear
CPT/HCPCS: 92557; 92567

== ENCOUNTER 2025-04-02 14:54 | Outpatient (CLI) | payer MEDICARE, BC, SELFPAY ==
--- NOTE | ~2025-04-02 | DEXA_ITS ---
Bone Density Report Name: SEPIDEH CERVANTES Age: 74 Sex: Female Ethnicity: White Date of : 1950 Indication: postmenopausal; screening for osteoporosis; history of glucocorticoids; asthma or emphysema; Referring Provider: JACK FLORES Study: Bone densitometry was performed. Exam Date: April 02, 2025 Accession number: [id number] Bone Density: Region BMD T-score Z-score Classification AP Spine(L1-L4) 1.211 1.5 3.8 Normal Femoral Neck (Left) 0.839 -0.1 1.9 Normal Total Hip (Left) 0.983 0.3 2.0 Normal Femoral Neck (Right) 0.822 -0.2 1.8 Normal Total Hip (Right) 0.932 -0.1 1.6 Normal Total Hip Mean 0.958 0.1 1.8 Normal World Health Organization criteria for BMD impression classify patients as: Normal (T-score at or above -1.0), Osteopenia (T-score between -1.0 and -2.5), or Osteoporosis (T-score at or below -2.5). 10-year Fracture Risk: FRAX not reported because: All T-scores for Spine Total, Hip Total, Femoral Neck at or above -1.0 Clinical Information Provided by Patient: Has taken Glucocorticoids Has used the following medications: Vitamin D Has the following medical conditions: Asthma or Emphysema Patient maximum height was 65 Menopause Age: 51 No regular weight bearing exercise Drinks caffeinated beverages Onset of menses at age 11 Number of children 3 Impression: The patient has normal bone mass. The patient has risk factors, including: history of glucocorticoid therapy. Discussion: BONE DENSITY IS ABOVE THE MINIMUM DESIRABLE LEVEL AT ALL SKELETAL SITES TESTED. This patient?s bone mineral density is above the minimum desirable level (T-score -1.0 or better) at all sites measured. The patient should follow a healthful lifestyle (good nutrition with adequate calcium and vitamin D, and appropriate weight-bearing exercise). Follow-Up: Consider repeating this study in 5 years or sooner if there is some new clinical indication. Reported by: JATINDER on 04/02/2025 3:11:00 PM. Reviewed, dictated and finalized at location A.
== END 2025-04-02 14:55 | disposition home or self-care (01) ==
LOC: MICIMG 14:55
PROVIDERS: PCP Family Medicine; Visit Provider Family Medicine
DX: Z13.820 Encounter for screening for osteoporosis (principal); Z78.0 Asymptomatic menopausal state
CPT/HCPCS: 77080